=== PATIENT | male | born 2000 | race Caucasian/White ===

== ENCOUNTER 2023-02-24 07:05 | Emergency (ER) | payer OTHER ==
[2023-02-24] MEDS ORDERED: Ibuprofen 400 MG Tab PO ONE (07:32)
[2023-02-24] MEDS ORDERED: Acetaminophen 325 MG Tab PO ONE (07:32)
[2023-02-24] MEDS ORDERED: Diphtheria,Pertussis(Acell),Tetanus Vaccine 0.5 ML Syringe IM ONE (07:34)
[2023-02-24] MEDS ORDERED: Amoxicillin/Clavulanate K 875-125 MG Tab PO ONE (07:37)
== END 2023-02-24 08:08 | disposition home or self-care (01) ==
LOC: MW.ED 07:05
DX: S61.431A Puncture wound without foreign body of right hand, initial encounter (principal); J45.909 Unspecified asthma, uncomplicated; Z23 Encounter for immunization; W31.89XA Contact with other specified machinery, initial encounter; Y92.89 Other specified places as the place of occurrence of the external cause; Y99.0 Civilian activity done for income or pay
CPT/HCPCS: 73130; 90471; 90715; 99283; A9270